=== PATIENT | male | born 1985 | race Caucasian/White ===

== ENCOUNTER 2022-07-18 00:13 | Day surgery (SDC) | payer BC, SELFPAY ==
[2022-06-11 11:55] VITALS: BMI 32.1
--- NOTE | 2022-07-01 13:33 | PC.NURSE ---
Patient denies any changes to health history or medications. Updated on arrival time and NPO status. No questions at this time.
--- NOTE | 2022-07-17 15:30 | PM.HPGS ---
History of Present Illness History of Present Illness Consent: Risks, benefits, and alternatives have been discussed and questions answered. Patient agrees to proceed with procedure. Chief complaint: GERD Narrative: Tru Villarreal is a 36 year old male Referred for EGD For follow-up of Barretts esophagus. He is currently taking pantoprazole 40 mg daily . This usually controls his symptoms although he had a few days with more heartburn, particularly when he had COVID recently Review of Systems Review of Systems: All systems reviewed & are unremarkable except as noted in HPI and below PMFSH Social History Social History Smoking status: Light tobacco smoker Tobacco type: cigarettes Alcohol intake: current Alcohol use details: social Substance use: never Substance use type: does not use Living arrangements: with family Spiritual care concerns: No Meds Home Medications and Allergies Home Medications Medication Instructions Recorded Confirmed Type citalopram 20 mg tablet 20 mg PO DAILY 06/11/22 06/11/22 History clomiphene citrate 50 mg tablet 50 mg PO DAILY 06/11/22 06/11/22 History lorazepam 0.5 mg tablet 0.5 mg PO DAILY 06/11/22 06/11/22 History metformin 500 mg tablet,extended 500 mg PO DAILY 06/11/22 06/11/22 History release 24 hr pantoprazole 40 mg tablet,delayed 40 mg PO DAILY 06/11/22 06/11/22 History release semaglutide 0.25 mg or 0.5 mg (2 0.5 mg subcut WEEKLY 06/11/22 06/11/22 History mg/1.5 mL) subcutaneous pen injector (Ozempic) Allergies Allergy/AdvReac Type Severity Reaction Status Date / Time No Known Allergies Allergy Verified 07/18/22 09:45 Exam Const: General: alert Orientation/consciousness: patient oriented x3 Resp: Auscultation: clear to auscultation bilaterally Cardio: Rhythm: regular rhythm GI: GI Palp: Yes Soft to palpation and No Tenderness to palpation present (GI) Neuro: General: patient oriented x3 Assessment and Plan Assessment and plan (1) GERD (gastroesophageal reflux disease): Code(s): K21.9 - Gastro-esophageal reflux disease without esophagitis Status: Acute Assessment and Plan: EGD with possible biopsy or dilatation or cautery.
[2022-07-18 09:48] VITALS: BP 122/81; PULSE 66; RESP 18; TEMP 36.6; O2SAT 98
[2022-07-18] MEDS: LACTATED RINGERS 1,000 ML 150 ML IV CONT (09:55)
[2022-07-18 10:03] LABS: Glucose Point of Care 86 mg/dl (65-105)
--- NOTE | 2022-07-18 10:16 | P.PNAN_ITS ---
Anes - Initial Pre Proc Eval Procedure: Operation Date: 07/18/22 10:30 Proposed Procedures p Esophagogastroduodenoscopy - Wade Rodriguez MD Date/Time: 07/18/22 10:16 Surgeon: Wade Rodriguez MD Pre Op Diagnosis: GERD Patient Data Age: 36 Gender: M Height: 1.8 m Weight: 111.9 kg Last Vital Signs Temp 98 F 07/18/22 09:48 Pulse 66 07/18/22 09:48 Resp 18 07/18/22 09:48 BP 122/81 07/18/22 09:48 Pulse Ox 98 07/18/22 09:48 O2 Del Method Room Air 07/18/22 09:48 Allergies Allergy/AdvReac Type Severity Reaction Status Date / Time No Known Allergies Allergy Verified 07/18/22 09:45 Home Medications Medication Instructions Recorded Confirmed Type citalopram 20 mg tablet 20 mg PO DAILY 06/11/22 06/11/22 History clomiphene citrate 50 mg tablet 50 mg PO DAILY 06/11/22 06/11/22 History lorazepam 0.5 mg tablet 0.5 mg PO DAILY 06/11/22 06/11/22 History metformin 500 mg tablet,extended 500 mg PO DAILY 06/11/22 06/11/22 History release 24 hr pantoprazole 40 mg tablet,delayed 40 mg PO DAILY 06/11/22 06/11/22 History release semaglutide 0.25 mg or 0.5 mg (2 0.5 mg subcut WEEKLY 06/11/22 06/11/22 History mg/1.5 mL) subcutaneous pen injector (Ozempic) Laboratory Tests 07/18/22 09:59 POC Capillary Glucose 86 mg/dl mg/dl (65-105) Patient hx anesthesia problems: none Family hx anesthesia problems: none Results Review: All pre-operative results and documents have been reviewed as part of the pre- operative evaluation. [facility] Social History Social History Smoking status: Light tobacco smoker Tobacco type: cigarettes Alcohol intake: current Alcohol use details: social Substance use: never Substance use type: does not use Living arrangements: with family Spiritual care concerns: No Anes - Eval Final PreProcedure Day of Procedure 07/18/22 10:16 Patient weight: obese Heart: regular rate and rhythm Lungs: clear to auscultation Airway: Mallampati scale class II Neurological: alert and oriented Last oral intake: >/= 8 hours ASA classification: III Emergent: no Anesthetic plan: proceed Anesthesia type and monitoring: general GIVS and standard monitoring Results Review: All pre-operative results and documents have been reviewed as part of the pre- operative evaluation. Informed Consent: The patient's anesthetic plan and its attendant risks and benefits were discussed with the patient/family/POA. Questions were solicited and answers provided to the satisfaction of the patient/family/POA.
[2022-07-18 10:41] VITALS: BP 113/82; PULSE 76; RESP 21; O2SAT 94
[2022-07-18 10:51] VITALS: BP 135/91; PULSE 64; RESP 25; O2SAT 97
[2022-07-18 11:01] VITALS: BP 130/89; PULSE 65; RESP 24; O2SAT 98
== END 2022-07-18 11:10 | disposition home or self-care (01) ==
PROVIDERS: PCP Physician Assistant; Visit Provider Internal Medicine Gastroenterology
PROC: 0DJ08ZZ Inspection of Upper Intestinal Tract, Via Natural or Artificial Opening Endoscopic (ICD-10-PCS; CPT 43235; principal; 2022-07-18 10:30)
DX: K22.70 Barrett's esophagus without dysplasia (principal); K44.9 Diaphragmatic hernia without obstruction or gangrene; Z79.84 Long term (current) use of oral hypoglycemic drugs; F17.210 Nicotine dependence, cigarettes, uncomplicated; E66.9 Obesity, unspecified; Z68.34 Body mass index [BMI] 34.0-34.9, adult
CPT/HCPCS: 43235; 82948; 88305; J2704; J7120

== ENCOUNTER 2025-09-06 00:13 | Day surgery (SDC) | payer BC, SELFPAY ==
[2025-08-22 15:28] VITALS: BMI 32.1
--- OUTSIDE RECORDS SUMMARY | 2025-09-06 00:17 | XMS_ITS | Clinical Summary ---
Author Organization [facility] Address [address] [place] [address] Phone Care Team Providers Care Surgical Processor Name Role Phone Simon Arrington MD Primary Care Provider [phone] Social History Tobacco Use Types Packs/Day Years Used Date Smoking Tobacco: Never Assessed Sex and Gender Information Value Date Recorded Sex Assigned at Not on file Legal Sex Male 11:12 AM CDT Gender Identity Not on file Sexual Orientation Not on file Plan of Treatment Health Maintenance Due Date Last Done Comments DTAP/TDAP/TD VACCINES (1 - Tdap) 2005 HEPATITIS B VACCINES (1 of 3 - 19+ 3-dose series) 08/13 HPV VACCINES (1 - 3-dose SCDM series) 2013 INFLUENZA VACCINE (#1) 2025 Insurance [employer] BLUE ACCESS/TRUE BLUE PPO Care Teams Surgical Processor Relationship Specialty Start Date End Date Simon Arrington MD [address] [place] [address] PCP - General Internal Medicine 04/01/17
[2025-09-06 06:19] VITALS: BP 141/81; PULSE 75; RESP 18; TEMP 36.3; O2SAT 98; BMI 33.1
[2025-09-06] MEDS: LACTATED RINGERS 1,000 ML 150 ML IV CONT (06:28)
--- NOTE | 2025-09-06 07:31 | WPDANESEPPF ---
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 Patient Data Age: 40 Gender: M Height: 1.8 m Weight: 107.7 kg Last Vital Signs Temp 97.3 F L 09/06/25 06:19 Pulse 75 09/06/25 06:19 Resp 18 09/06/25 06:19 BP 141/81 H 09/06/25 06:19 Pulse Ox 98 09/06/25 06:19 O2 Del Method Room Air 09/06/25 06:19 Allergies Allergy/AdvReac Type Severity Reaction Status Date / Time No Known Allergies Allergy Verified 09/06/25 06:17 Home Medications ?Medication ?Instructions ?Recorded ?Confirmed ?Type citalopram 20 mg tablet 20 mg PO DAILY 06/11/22 09/06/25 History clomiphene citrate 50 mg tablet 50 mg PO DAILY 06/11/22 09/06/25 History lorazepam 0.5 mg tablet 0.5 mg PO DAILY 06/11/22 08/22/25 History metformin 500 mg tablet,extended 500 mg PO DAILY 06/11/22 09/06/25 History release 24 hr pantoprazole 40 mg tablet,delayed See Rx Instructions .Route 06/09/23 09/06/25 Rx release .COMPLEX #90 tabs aspirin 81 mg capsule 81 mg PO DAILY 08/22/25 09/06/25 History levothyroxine 25 mcg tablet 25 mcg PO DAILY 08/22/25 09/06/25 History testosterone cypionate 200 mg/mL 200 mg IM .[id number] 08/22/25 08/22/25 History intramuscular oil tirzepatide (weight loss) 10 10 mg subcut WEEKLY 09/06/25 09/06/25 History mg/0.5 mL subcutaneous pen injector (Zepbound) Laboratory Tests 09/06/25 06:26 POC Capillary Glucose 94 mg/dl (65-105) Patient hx anesthesia problems: none Family hx anesthesia problems: none Results Review: All pre-operative results and documents have been reviewed as part of the pre-operative evaluation. PMFSH Social History Social History Smoking status: Former smoker Tobacco type: cigarettes Alcohol intake: current Drinks per week: 3 Alcohol use details: social Substance use: never Substance use type: does not use Living arrangements: with family Spiritual care concerns: No Anes - Eval Final PreProcedure Day of Procedure 09/06/25 07:31 Patient weight: obese Lungs: normal air movement Airway: Mallampati scale class II and special considerations (Upper cap. ) Neurological: alert and oriented Last oral intake: >/= 8 hours ASA classification: III Emergent: no Anesthetic plan: proceed Anesthesia type and monitoring: general GIVS and standard monitoring Results Review: All pre-operative results and documents have been reviewed as part of the pre-operative evaluation. GERD, VINNIE on CPAP, GLP 1 off 10 days, FSBS 94. Informed Consent: The patient's anesthetic plan and its attendant risks and benefits were discussed with the patient/family/POA. Questions were solicited and answers provided to the satisfaction of the patient/family/POA.
--- NOTE | 2025-09-06 07:44 | PM.HPGS ---
History of Present Illness History of Present Illness Consent: Risks, benefits, and alternatives have been discussed and questions answered. Patient agrees to proceed with procedure. 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 Narrative: Tru Villarreal is a 40 year old male with gerd on pantoprazole doing ok, h/o weaver's with last egd 2021 Review of Systems Review of Systems: All systems reviewed & are unremarkable except as noted in HPI and below PMFSH Social History Social History Smoking status: Former smoker Tobacco type: cigarettes Alcohol intake: current Drinks per week: 3 Alcohol use details: social Substance use: never Substance use type: does not use Living arrangements: with family Spiritual care concerns: No Meds Home Medications and Allergies Home Medications ?Medication ?Instructions ?Recorded ?Confirmed ?Type citalopram 20 mg tablet 20 mg PO DAILY 06/11/22 09/06/25 History clomiphene citrate 50 mg tablet 50 mg PO DAILY 06/11/22 09/06/25 History lorazepam 0.5 mg tablet 0.5 mg PO DAILY 06/11/22 08/22/25 History metformin 500 mg tablet,extended 500 mg PO DAILY 06/11/22 09/06/25 History release 24 hr pantoprazole 40 mg tablet,delayed See Rx Instructions .Route 06/09/23 09/06/25 Rx release .COMPLEX #90 tabs aspirin 81 mg capsule 81 mg PO DAILY 08/22/25 09/06/25 History levothyroxine 25 mcg tablet 25 mcg PO DAILY 08/22/25 09/06/25 History testosterone cypionate 200 mg/mL 200 mg IM .[id number] 08/22/25 08/22/25 History intramuscular oil tirzepatide (weight loss) 10 10 mg subcut WEEKLY 09/06/25 09/06/25 History mg/0.5 mL subcutaneous pen injector (Zepbound) Allergies Allergy/AdvReac Type Severity Reaction Status Date / Time No Known Allergies Allergy Verified 09/06/25 06:17 Vital Signs Vital Signs - 24 hr 09/06/25 06:19 Temperature 97.3 F L Pulse Rate 75 Respiratory Rate 18 Blood Pressure 141/81 H Pulse Oximetry 98 Oxygen Delivery Room Air Exam Const: General: comfortable and no acute distress HENMT: Face/Nose/Sinus: Normal nares present Eyes: General: appearance normal, both eyes and all related structures Neck: Neck: no JVD Resp: Auscultation: clear to auscultation bilaterally Cardio: Rate: regular rate Rhythm: regular rhythm GI: Inspection: non-distended GI Palp: Yes Soft to palpation Skin: General skin exam: normal color Extrem: General: normal to inspection Psych: Mental Status: mental status grossly normal Assessment and Plan Assessment and plan (1) GERD (gastroesophageal reflux disease): Code(s): K21.9 - Gastro-esophageal reflux disease without esophagitis Status: Acute Assessment and Plan: egd on ppi
--- NOTE | 2025-09-06 07:48 | S_PTH ---
PATIENT: Tru Villarreal LOC: [facility]#:[id number] AGE/SX: 40/M ROOM: RE09/06/[address]: Scott Cavanaugh MD : 1985 BED: DIS: 09/06/2025 SPEC #: [id number] RECD: 09/06/25 08:08 STATUS: DONN GONZALEZ #: [id number] VALDO: 09/06/25 07:[address]: Scott Cavanaugh DEPT: [facility] Surgical RECD BY: Lizz George ENTERED: 09/06/25 08:09 SP TYPE: Surgical OTHR DR: Linda Ulloa, PAKeylaC Tissues: A - Esophageal Biopsy Procedures: Hematoxylin and Eosin Stain Gross and Microscopic Level 4
[2025-09-06 07:53] VITALS: BP 115/75; PULSE 79; RESP 19; O2SAT 96
[2025-09-06 08:03] VITALS: BP 112/79; PULSE 75; RESP 18; O2SAT 98
[2025-09-06 08:13] VITALS: BP 123/75; PULSE 76; RESP 18; O2SAT 100
== END 2025-09-06 08:20 | disposition home or self-care (01) ==
PROVIDERS: PCP Physician Assistant; Referring Provider Internal Medicine Gastroenterology; Visit Provider Internal Medicine Gastroenterology
PROC: 0DJ08ZZ Inspection of Upper Intestinal Tract, Via Natural or Artificial Opening Endoscopic (ICD-10-PCS; CPT 43239; principal; 2025-09-06 07:45)
DX: K21.9 Gastro-esophageal reflux disease without esophagitis (principal); K44.9 Diaphragmatic hernia without obstruction or gangrene; K22.89 Other specified disease of esophagus; G47.33 Obstructive sleep apnea (adult) (pediatric); E66.9 Obesity, unspecified; Z68.33 Body mass index [BMI] 33.0-33.9, adult; Z79.84 Long term (current) use of oral hypoglycemic drugs; Z79.82 Long term (current) use of aspirin; Z79.85 Long-term (current) use of injectable non-insulin antidiabetic drugs; Z99.89 Dependence on other enabling machines and devices; Z87.891 Personal history of nicotine dependence
CPT/HCPCS: 43239; 82948; 88305; J2003; J2704; J7120